=== PATIENT | male | born 1985 | race Caucasian/White ===

== ENCOUNTER 2024-11-11 15:39 | Emergency (ER) | payer MEDICAID, SELFPAY ==
[2024-11-11 15:46] VITALS: BP 122/80; PULSE 79; RESP 18; TEMP 36.8; O2SAT 99; BMI 37.0
--- NOTE | 2024-11-11 17:42 | ED.UPPEXIN ---
HPI - Extremity Injury (Upper) General Date Seen: 11/11/24 Chief Complaint: Extremity Pain/Injury, Upper Stated Complaint: L shoulder pain Time Seen by Provider: 11/11/24 17:10 Source: patient Mode of arrival: ambulatory Limitations: no limitations History of Present Illness HPI narrative: Patient is a 39-year-old male presenting to the emergency department for left shoulder pain. He states this pain is been going on for the past year but he recently moved to the area. He has risen a from [place] and did start seeing primary care there and had an x-ray showing some arthritis but no other abnormalities. Was unable to get further treatment due to moving. He states he will now be living in the area of for the foreseeable future. States the pain is any worse today but it is becoming heart do with and he is hoping to get referral and pain relief for the shoulder. Is taking Tylenol and ibuprofen which helps some. Does not remember any specific injuries to the shoulder. Related Data Previous Rx's ?Medication ?Instructions ?Recorded ketorolac 10 mg tablet 10 mg PO Q6H PRN pain #20 tabs 11/11/24 prednisone 20 mg tablet 40 mg (2 x 20 mg) PO DAILY #10 tabs 11/11/24 Allergies Allergy/AdvReac Type Severity Reaction Status Date / Time No Known Drug Allergies Allergy Verified 11/11/24 15:50 Review of Systems Narrative: Pertinent systems reviewed and were negative unless stated in HPI Exam Narrative: Exam Narrative: Const: Well-nourished, Well-developed, in mild distress Eyes: PERRL, no conjunctival injection, and symmetrical lids HENT: Atraumatic external nose and ears. Moist mucous membranes. MSK:Extremities w/o deformity, Normal Active ROM, positive empty can test to left shoulder. Tenderness over the supraspinatus tendon Skin: Warm, Dry. No rashes or lesions. Neuro: Normal Muscle tone, No focal neurological deficits. Psych: Awake, Alert, & Oriented x3. Appropriate mood and affect. Const: Vital Signs, click to edit/add: Vital Signs - 24 hr 11/11/24 15:46 Temperature 98.3 F Pulse Rate [Right Pulse Oximeter] 79 Respiratory Rate 18 Blood Pressure [Ri ght Upper Arm] 122/80 Pulse Oximetry 99 Oxygen Delivery Me thod Room Air Course Vital Signs Vital signs: Initial Vital Signs Temperature 98.3 F 11/11/24 15:46 Temperature Source Temporal Artery Scan 11/11/24 15:46 Pulse Rate 79 11/11/24 15:46 Pulse Rhythm Regular 11/11/24 15:46 Pulse Strength 3+ Normal 11/11/24 15:46 Respiratory Rate 18 11/11/24 15:46 Blood Pressure 122/80 11/11/24 15:46 Blood Pressure Mean 94 11/11/24 15:46 Pulse Oximetry 99 11/11/24 15:46 Oxygen Delivery Method Room Air 11/11/24 15:46 Vital Signs Temperature 98.3 F 11/11/24 15:46 Pulse Rate 79 11/11/24 15:46 Respiratory Rate 18 11/11/24 15:46 Blood Pressure 122/80 11/11/24 15:46 Pulse Oximetry 99 11/11/24 15:46 Oxygen Delivery Method Room Air 11/11/24 15:46 Temperature 98.3 F 11/11/24 15:46 Pulse Rate 79 11/11/24 15:46 Respiratory Rate 18 11/11/24 15:46 Blood Pressure 122/80 11/11/24 15:46 Pulse Oximetry 99 11/11/24 15:46 Oxygen Delivery Method Room Air 11/11/24 15:46 MDM - Extremity Injury (Upper) MDM Narrative Medical decision making narrative: Patient is a 39-year-old male presenting for what sounds like supraspinatus tendonitis. Further management will need to be outpatient but can prescribe him Toradol and steroids for his likely tendonitis. Do not believe repeat imaging is necessary as he states he had an x-ray done a few months ago and this was nontraumatic injury. Did send him a referral for physical therapy and gave him information to follow up with primary care and Orthopedics. He is agreeable to this plan. Discharge Plan Discharge Clinical Impression: Supraspinatus tendinitis Qualifiers: Laterality: left Qualified Code(s): M75.92 - Shoulder lesion, unspecified, left shoulder Patient Disposition: Home, Self-Care Condition: Stable Additional Instructions: I sent a referral for [facility]. They should contact you to set up the appointments. You will need to follow up with primary care in be given information for primary care. Follow-up with [facility]. Call them at . Was prescribed Toradol and steroids. When using the Toradol do not take other NSAIDs, for example naproxen or ibuprofen. You can use Tylenol though as it is a different class of drugs. Prescriptions: New prednisone 20 mg tablet 40 mg PO DAILY Qty: 10 0RF ketorolac 10 mg tablet 10 mg PO Q6H PRN (Reason: pain) Qty: 20 0RF Rx Instructions: maximum total duration of 5 days from all oral, intranasal, or parenteral formulations Stand Alone Forms: [employer] Info Instructions
--- OUTSIDE RECORDS SUMMARY | 2024-11-11 17:54 | XMS_ITS | Encounter Summary ---
Author Organization [facility] Address [address] [place] [address] Care Team Providers Care Assistant Manager Quality Management Name Role Phone Ga Neely APRN, CNP Primary Care Provi lawrence Encounter Details Date Type Department Care Team (Late st Contact Info) Description 05/05/2015 Correspondence [facility] [address] [place], [place] [address] Ga Neely APRN, RETAIL TEAM LEADER [address] [place] [id number] RESCRICTED RECIPLENT PROGRAM Social History Tobacco Use Types Packs/Day Years Used Date Smoking Tobacco: Every Day Cigarettes Smokeless Tobacco: Never Comments:already started Alcohol Use Standard Drinks/Week Comments Yes 0.8 (1 standard drink = 0.6 oz p ure alcohol) Sex and Gender Information Value Date Recorded Sex Assigned at Not on file Legal Sex Male 6:10 AM CDT Gender Identity Not on file Sexual Orientation Not on file documented as of this encounter Plan of Treatment Not on file documented as of this encounter Visit Diagnoses Not on filedocumented in this encounter Care Teams Assistant Manager Quality Management Relationship Specialty Start Date End Date Ga Neely APRN, COOPER [address] [place], [place] [phone] PCP - General Nurse Practitioner 03/18/13 03/24/19 documented as of this encounter
--- OUTSIDE RECORDS SUMMARY | 2024-11-11 17:54 | XMS_ITS | Encounter Summary ---
[facility] Organization [facility] Address [address] [place] [address] Care Team Providers Care Electrical Assembly Technician Name Role Phone Ga Neely APRN, CNP Primary Care Provi lawrence Encounter Details Date Type Department Care Team (Late st Contact Info) Description 08/11/2015 Correspondence [facility] [address] [facility] [place], [place] [phone] Rajni Palm MD [address] [place] [address] REPORT Social History Tobacco Use Types Packs/Day Years [...] on filedocumented in this encounter Care Teams Electrical Assembly Technician Relationship Specialty Start Date End Date Ga Neely APRN, CNP [address] [place] [address] PCP - General Nurse Practitioner 03/18/13 03/24/19 documented as of this encounter
--- OUTSIDE RECORDS SUMMARY | 2024-11-11 17:54 | XMS_ITS | Encounter Summary ---
Author Organization [facility] Address [address] [place] [address] Care Team Providers Care Postal Clerk Name Role Phone Ga Neely APRN, CNP Primary Care Provi lawrence Encounter Details Date Type Department Care Team (Latest Contact Info) Description 06/02/2015 Correspondence [facility] [address] [place], [place] [phone] Rajni Palm MD [address] [place], [place] [phone] FITNESS FOR DUTY/RETURN TO WORK Social History Tobacco Use Types Packs/Day Years [...] on filedocumented in this encounter Care Teams Postal Clerk Relationship Specialty Start Date End Date Ga Neely APRN, CNP [address] [address] PCP - General Nurse Practitioner 03/18/13 03/24/19 documented as of this encounter
--- OUTSIDE RECORDS SUMMARY | 2024-11-11 17:54 | XMS_ITS | Encounter Summary ---
Author Organization [facility] Address [address] [place] [address] Care Team Providers Care Power Barker Name Role Phone Ga Neely APRN, CNP Primary Care Provi lawrence Encounter Details Date Type Department Care Team (Late st Contact Info) Description 11/04/2013 Correspondence [facility] [address] [facility] [place] [address] Andrea Roach MD PREWORK SCREEN Social History Tobacco Use Types Packs/Day Years Used Date Smoking Tobacco: Every Day Cigarettes Smokeless Tobacco: Never Alcohol Use Standard Drinks/Week Comments Yes 0.8 [...] on filedocumented in this encounter Care Teams Power Barker Relationship Specialty Start Date End Date Ga Neely APRN, COOPER [address] [place], [place] [phone] PCP - General Nurse Practitioner 03/18/13 03/24/19 documented as of this encounter
--- OUTSIDE RECORDS SUMMARY | 2024-11-11 17:54 | XMS_ITS | Encounter Summary ---
Author Organization [facility] Address [address] [place] [address] Care Team Providers Care Operations Administrator Name Role Phone Ga Neely APRN, CNP Primary Care Provi lawrence Encounter Details Date Type Department Care Team (Latest Contact Info) Description 11/04/2013 Consent for Procedure/Treatm ent [facility] [address] [facility] [place], [place] [phone] Andrea Roach MD DRUG SCREEN RELEASE Social History Tobacco Use Types Packs/Day Years [...] on filedocumented in this encounter Care Teams Operations Administrator Relationship Specialty Start Date End Date Ga Neely APRN, CNP [address] [place], [place] [address] PCP - General Nurse Practitioner 03/18/13 03/24/19 documented as of this encounter
--- OUTSIDE RECORDS SUMMARY | 2024-11-11 17:54 | XMS_ITS | Encounter Summary ---
Author Organization [facility] Address [address] [place] [address] Care Team Providers Care Board Certified Arts Therapist Name Role Phone Ga Neely APRN, CNP Primary Care Provi lawrence Encounter Details Date Type Department Care Team (Late st Contact Info) Description 11/04/2013 Correspondence [facility] [address] [place] [address] Andrea Roach MD SYMPTOM HISTORY Social History Tobacco Use Types Packs/Day Years [...] on filedocumented in this encounter Care Teams Board Certified Arts Therapist Relationship Specialty Start Date End Date Ga Neely APRN, WINE AND SPIRITS CLERK [address] [place], [place] [phone] PCP - General Nurse Practitioner 03/18/13 03/24/19 documented as of this encounter
--- OUTSIDE RECORDS SUMMARY | 2024-11-11 17:54 | XMS_ITS | Encounter Summary ---
Author Organization [facility] Address [address], [place] [address] Care Team Providers Care Animal Killer Name Role Phone Ga Neely APRN, CNP Primary Care Provi lawrence Encounter Details Date Type Department Care Team (Late st Contact Info) Description 06/29/2015 Consent for Procedure/Treatment None No Primary/Referring, Phy CONSENT FORM MED EXAM RESPIRATOR CERT Social History Tobacco Use Types Packs/Day Years [...] on filedocumented in this encounter Care Teams Animal Killer Relationship Specialty Start Date End Date Ga Neely APRN, CNP [address] [place] [address] PCP - General Nurse Practitioner 03/18/13 03/24/19 documented as of this encounter
--- OUTSIDE RECORDS SUMMARY | 2024-11-11 17:54 | XMS_ITS | Encounter Summary ---
Author Organization [facility] Address [address], [place] [address] Care Team Providers Care Electrical Inspector Name Role Phone Ga Neely APRN, CNP Primary Care Provi lawrence Encounter Details Date Type Department Care Team (Late st Contact Info) Description 06/28/2015 Correspondence [facility] REPORT OF WORKABILITY Social History Tobacco Use Types Packs/Day Years [...] filedocumented in this encounter Care Teams Electrical Inspector Relationship Specialty Start Date End Date Ga Neely, HANNY, RETAIL MORTGAGE BANKER [address] [address] PCP - General Nurse Practitioner 03/18/13 03/24/19 documented as of this encounter
--- OUTSIDE RECORDS SUMMARY | 2024-11-11 17:54 | XMS_ITS | Encounter Summary ---
Author Organization [facility] Address [address] [place] [address] Care Team Providers Care Prosthetics Technician Name Role Phone Ga Neely APRN, CNP Primary Care Provi lawrence Encounter Details Date Type Department Care Team (Latest Contact Info) Description 06/02/2015 Correspondence [facility] [address] [place], [place] [phone] Rajni Palm MD [address] [place], [place] [phone] NISREEN ALVAREZ PRE-WORK SCREEN Social History Tobacco Use Types Packs/Day [...] on filedocumented in this encounter Care Teams Prosthetics Technician Relationship Specialty Start Date End Date Ga Neely APRN, CNP [address] [place] [address] PCP - General Nurse Practitioner 03/18/13 03/24/19 documented as of this encounter
--- OUTSIDE RECORDS SUMMARY | 2024-11-11 17:54 | XMS_ITS | Encounter Summary ---
Author Organization [facility] Address [address], [place] [address] Care Team Providers Care Seafood Specialist Name Role Phone Ga Neely APRN, CNP Primary Care Provi lawrence Encounter Details Date Type Department Care Team (Latest Contact Info) Description 11/04/2013 Correspondence [facility] [address] [place] [address] Andrea Roach MD INITIAL HEALTH QUESITONNAIRE Social History Tobacco Use Types Packs/Day Years [...] on filedocumented in this encounter Care Teams Seafood Specialist Relationship Specialty Start Date End Date Ga Neely APRN, CNP [address] [place], [place] [address] PCP - General Nurse Practitioner 03/18/13 03/24/19 documented as of this encounter
--- OUTSIDE RECORDS SUMMARY | 2024-11-11 17:54 | XMS_ITS | Clinical Summary ---
Author Organization [facility] Address [address] [place] [address] Care Team Providers Care Inspector Optical Instrument Name Role Phone Pcp, No Primary Care Provider Unavailabl e Allergies Active Allergy Reactions Criticality Noted Date Comments Droperidol Anxiety 06/09/2014 Gabapentin Anxiety,Tachycardia 06/20/2013 Medications FLUTICASONE 50 MCG/ACTUATION NASAL SPRAY, SUSP inhale 1 spray in each nostril by intranasal route once daily 1 0 9 Active albuterol HFA (PRO-AIR,ROSALIO KATHARINE,PROVENTIL) 90 mcg/actuation inhaler Inhale 2 Puffs by mouth 4 times daily if needed for Shortness Of Breath, Wheezing or (cough). 8.5 g 02/23/2012 1:18 AM FIELD RESEARCH ASSOCIATE 2 Active oxyCODONE-acet aminophen, 5-325 mg, (PERCOCET) per tablet Take 1 tablet by mouth every 4 hours if needed for Pain. Max acetaminophen dose: 4000mg in 24 hrs. 15 tablet 0 4 Active oxyCODONE-acet aminophen, 5-325 mg, (PERCOCET) per tablet Take 1 tablet by mouth every 4 hours if needed for Pain. Max acetaminophen dose: 4000mg in 24 hrs. 15 tablet 0 4 Active traMADol (ULTRAM) 50 mg tablet Take 1 tablet by mouth every 6 hours if needed for Pain. 15 tablet 0 4 Active omeprazole (PRILOSEC) 20 mg Delayed-Releas e capsule Take 1 capsule by mouth once daily before a meal. 30 capsule 0 5 Active acetaminophen (TYLENOL) 325 mg tablet Take 2 tablets by mouth every 6 hours if needed. Max acetaminophen dose: 4000mg in 24 hrs. 40 tablet 0 5 Active naproxen (NAPROSYN) 500 mg tabletIndicati ons:Acute back pain Take 1 tablet by mouth 2 times daily with meals. 30 tablet 0 5 Active cyclobenzaprin e (FLEXERIL) 10 mg tabletIndicati ons:Acute back pain Take 1 tablet by mouth 3 times daily. 15 tablet 0 5 Active HYDROcodone-ac etaminophen, 5-325 mg, (NORCO) per tabletIndicati ons:Acute back pain Take 1 tablet by mouth every 4 hours if needed for Pain. Max acetaminophen dose: 4000 mg in 24 hrs. 15 tablet 0 5 Active oxyCODONE-acet aminophen, 5-325 mg, (PERCOCET) 5-325 mg per tabletIndicati ons:Perianal abscess Take 1-2 tablets by mouth every 4 hours if needed for Pain. Max acetaminophen dose: 4000mg in 24 hrs. 20 tablet 6 Active Social History Tobacco Use Types Packs/Day Years Used Date Smoking Tobacco: Every Day Comments:12 cigarettes per d ay Alcohol Use Standard Drinks/Week Comments Not Asked 0 (1 standard drink = 0.6 oz pur e alcohol) Sex and Gender Information Value Date Recorded Sex Assigned at Not on file Legal Sex Male 7:27 AM FIELD RESEARCH ASSOCIATE Gender Identity Not on file Sexual Orientation Not on file Obstetrics History Last Filed Vital Signs Vital Sign Reading Time Taken Comments Blood Pressure 148/90 04/14/2015 2:53 AM FIELD RESEARCH ASSOCIATE Pulse 84 04/14/2015 2:53 AM FIELD RESEARCH ASSOCIATE Temperature 36.3 C (97.3 F) 04/13/2015 11:31 PM FIELD RESEARCH ASSOCIATE Respiratory Rate 18 04/14/2015 2:53 AM FIELD RESEARCH ASSOCIATE Oxygen Saturation 100% 04/14/2015 2:53 AM FIELD RESEARCH ASSOCIATE Inhaled Oxygen Concentration - - Weight 147.9 kg (326 lb) 02/09/2015 9:07 PM FIELD RESEARCH ASSOCIATE Height 198.1 cm (6' 6) 02/09/2015 9:07 PM FIELD RESEARCH ASSOCIATE Body Mass Index 37.67 02/09/2015 9:07 PM FIELD RESEARCH ASSOCIATE Plan of Treatment Health Maintenance Due Date Last Done Comments Tetanus booster 1997 Depression screening for age 12+ 1998 HIV for age 15-65 2001 BMI (ht and wt on same day) for age 18+ 2004 Hepatitis C screening for ag e 18-79 2004 Hepatitis B series for 19+ ( 1 of 3 - 19+ 3-dose series) 2005 Lipids for age 35-44 2021 COVID-19 vaccine series ( - 2023-25 season) 2023 Influenza Vaccine (#1) 2024 Pneumococcal series for age 6-49 Aged Out No longer eligible based on patient's age to complete this topic Insurance [facility] Care Teams Inspector Optical Instrument Relationship Specialty Start Date End Date Pcp, No . PCP - General 08/02/20
--- OUTSIDE RECORDS SUMMARY | 2024-11-11 17:54 | XMS_ITS | Encounter Summary ---
Author Organization [facility] Address [address] [place] [address] Care Team Providers Care Tool Specialist Name Role Phone Ga Neely APRN, CNP Primary Care Provi lawrence Encounter Details Date Type Department Care Team (Latest Contact Info) Description 06/02/2015 Correspondence [place] [facility] [address] [facility] [place] [place], [place] [address] Rajni Palm MD [address] [place], [place] [phone] POST OFFER EMPLOYMENT FORM Social History Tobacco Use Types Packs/Day Years [...] on filedocumented in this encounter Care Teams Tool Specialist Relationship Specialty Start Date End Date Ga Neely APRN, CNP [address] [address] PCP - General Nurse Practitioner 03/18/13 03/24/19 documented as of this encounter
--- OUTSIDE RECORDS SUMMARY | 2024-11-11 17:54 | XMS_ITS | Encounter Summary ---
Author Organization [facility] Address [address] [place] [address] Care Team Providers Care Production Coordinator Name Role Phone Ga Neely APRN, CNP Primary Care Provi lawrence Encounter Details Date Type Department Care Team (Latest Contact Info) Description 06/29/2015 Correspondence [facility] [address] [place] [address] [address] [place], [place] [address] Rajni Palm MD [address] [place], [place] [phone] FITNESS FOR DUTY RETURN TO WORK QUESTIONNAIRE Social History Tobacco Use Types Packs/Day Years [...] on filedocumented in this encounter Care Teams Production Coordinator Relationship Specialty Start Date End Date Ga Neely APRN, CNP [address] [place] [address] PCP - General Nurse Practitioner 03/18/13 03/24/19 documented as of this encounter
--- OUTSIDE RECORDS SUMMARY | 2024-11-11 17:54 | XMS_ITS | Encounter Summary ---
Author Organization [facility] Address [address] [place] [address] Care Team Providers Care Edge Burnisher Uppers Name Role Phone Ga Neely APRN, CNP Primary Care Provi lawrence Encounter Details Date Type Department Care Team (Latest Contact Info) Description 05/29/2015 Correspondence [place] [facility] [address] [place] [address] Rajni Palm MD [address] [place], [place] [phone] REPORT OF WORKABILITY Social History Tobacco Use [...] on filedocumented in this encounter Care Teams Edge Burnisher Uppers Relationship Specialty Start Date End Date Ga Neely APRN, CNP [address] [address] PCP - General Nurse Practitioner 03/18/13 03/24/19 documented as of this encounter
--- OUTSIDE RECORDS SUMMARY | 2024-11-11 17:54 | XMS_ITS | Encounter Summary ---
Author Organization [facility] Address [address] [place] [address] Care Team Providers Care Cremator Name Role Phone Ga Neely APRN, CNP Primary Care Provi lawrence Encounter Details Date Type Department Care Team (Latest Contact Info) Description 11/04/2013 Correspondence [place] [facility] [address] [facility] [place] [address] Andrea Roach MD EPWORTH SLEEPINESS SCALE Social History Tobacco Use Types Packs/Day Years [...] on filedocumented in this encounter Care Teams Cremator Relationship Specialty Start Date End Date Ga Neely APRN, COOPER [address] [place], [place] [address] PCP - General Nurse Practitioner 03/18/13 03/24/19 documented as of this encounter
--- OUTSIDE RECORDS SUMMARY | 2024-11-11 17:54 | XMS_ITS | Encounter Summary ---
Author Organization [facility] Address [address] [place] [address] Care Team Providers Care Equipment Inspector Name Role Phone Ga Neely APRN, CNP Primary Care Provi lawrence Encounter Details Date Type Department Care Team (Latest Contact Info) Description 03/27/2015 Correspondence [place] [facility] [address] [facility] [place] [address] Rajni Palm MD [address] [place], [place] [phone] REPORT OR WORKABILITY Social History Tobacco Use Types Packs/Day [...] on filedocumented in this encounter Care Teams Equipment Inspector Relationship Specialty Start Date End Date Ga Neely APRN, CNP [address] [address] PCP - General Nurse Practitioner 03/18/13 03/24/19 documented as of this encounter
--- OUTSIDE RECORDS SUMMARY | 2024-11-11 17:54 | XMS_ITS | Encounter Summary ---
Author Organization [facility] Address [address] [place] [address] Care Team Providers Care Recreation Therapy Aide Name Role Phone Ga Neely APRN, CNP Primary Care Provi lawrence Encounter Details Date Type Department Care Team (Late st Contact Info) Description 06/02/2015 Correspondence [facility] [address] [place], [place] [address] Rajni Palm MD [address] [place], [place] [phone] PREPLACEMENT EXAM Social History Tobacco Use Types Packs/Day Years [...] on filedocumented in this encounter Care Teams Recreation Therapy Aide Relationship Specialty Start Date End Date Ga Neely APRN, CNP [address] [address] PCP - General Nurse Practitioner 03/18/13 03/24/19 documented as of this encounter
--- OUTSIDE RECORDS SUMMARY | 2024-11-11 17:55 | XMS_ITS | Encounter Summary ---
Author Organization [facility] Address [address] [place] [address] Care Team Providers Care Block Operator Name Role Phone Ga Neely APRN, CNP Primary Care Provi lawrence Encounter Details Date Type Department Care Team (Latest Contact Info) Description 11/04/2013 Correspondence [place] [facility] [address] [facility] [place], [place] [phone] Andrea Roach MD SPEECH AND LANGUAGE ASSISTANT FITNESS DETERMINATION Social History Tobacco Use Types Packs/Day Years [...] on filedocumented in this encounter Care Teams Block Operator Relationship Specialty Start Date End Date Ga Neely APRN, COOPER [address] [place], [place] [address] PCP - General Nurse Practitioner 03/18/13 03/24/19 documented as of this encounter
--- OUTSIDE RECORDS SUMMARY | 2024-11-11 17:55 | XMS_ITS | Clinical Summary ---
[facility] [address] [place] [address] Care Team Providers Care Chief Financial Officer Name Role Phone Unavailable Primary Care Provider Unavailabl e Source Comments You are receiving this document as you are listed as the primary care provider,follow-up provider, or the patient has been referred to you for consultation.This is in compliance with the Medicare and[facility] E[facility] Incentive [facility],which states Providers who transition their patient to another setting of careor provider of care or refers their patient to another provider of care shouldprovide summary care record for each transition of care or referral. Ensenda Allergies Active Allergy Reactions Criticality Noted Date Comments Droperidol Anxiety 11/03/2015 Gabapentin Anxiety,Tachycardia 11/03/2015 Medications naproxen sodium (ALEVE) 220 MG tablet Take 220 mg by mouth two times a day with meals. Active ALBUterol sulfate HFA 108 (90 BASE) MCG/ACT inhaler Inhale 1-2 puffs every 6 hours as needed for Wheezing or Shortness of Breath. 1 Inhaler 0 6 Active ALBUterol 2.5 mg/3 mL, 0.083%, nebulizer solution Inhale 3 mLs by nebulization every 4 hours as needed for Wheezing. (3ml is 1 ampule) 75 mL 0 6 Active Acetaminophen-C odeine (TYLENOL/CODEIN E #3) 300-30 MG Take 1 Tab by mouth three times a day. 15 Tab 0 7 Active Additional Information Patient not taking.Reported on 09/04/2018 penicillin V potassium (PEN VEE K,VEETID) 500 MG tablet Take 1 Tab by mouth 4 times a day. 28 Tab 0 7 Active Additional Information Patient not taking.Reported on 09/04/2018 oxyCODONE-aceta minophen (PERCOCET) 5-325 MG tablet Take 1 Tablet by mouth every 4 hours as needed for Pain. 12 Tablet 9 Active cyclobenzaprine (FLEXERIL) 10 MG tablet Take 1 Tablet by mouth two times daily as needed for Muscle Spasms. 20 Tablet 9 Active ibuprofen (MOTRIN) 800 MG tablet Take 1 Tablet by mouth every 6 hours as needed for Pain. 90 Tablet 9 Active Active Problems Problem Noted Date Diagnosed Date Tobacco abuse 10/30/2015 Asthmatic bronchitis with exacerbation 5 Chronic low back pain 07/28/2013 Foot drop 07/28/2013 Paresthesia and pain of left extremity 4 CAREPLAN: Restriction 05/06/2013 Overview (05/06/2013): Name: CRISTHIAN OVERTON : 87 Restriction Begin Date: 05/06/2013 Restriction End Date: 05/06/2015 Start Date for Designated Providers: 05/06/2013 PCP Name: GA NEELY P[facility] Name: [facility] Phone #: Designated [facility]: [facility] Designated Hospital: [facility] Designated Pharmacy: [facility] Designated Pharmacy Phone #: [facility] Supervisor: Nere[facility] Supervisor's Member may access any contracted chemical/mental health provider w/o a referral from their Primary care physician but may require authorization from the dept - [phone] or fax [phone]. The following services are not restricted: routine screenings (ex. mammogram and annual PAP), dental and eye appointments, manager port visits and DME. Referral is needed from designated PCP in order to access any other providers including acupuncture and chiropractic, regardless of plan type. Morbid obesity 03/18/2013 Tobacco use disorder 03/18/2013 Immunizations Immunization Administration Dates Next Due HepB Ped/Adol (0-18 yrs) 06/17/2003 Tdap 12/12/2008 Social History Tobacco Use Types Packs/Day Years Used Date Smoking Tobacco: Every Day Cigarettes Smokeless Tobacco: Never Tobacco Cessation:Ready to Q uit: Yes Comments:already started Alcohol Use Standard Drinks/Week Comments Yes 0 (1 standard drink = 0.6 oz pur e alcohol) occassionally Sex and Gender Information Value Date Recorded Sex Assigned at Not on file Legal Sex Male 6:10 AM CDT Gender Identity Not on file Sexual Orientation Not on file Last Filed Vital Signs Vital Sign Reading Time Taken Comments Blood Pressure 116/59 09/04/2018 5:18 PM CDT Pulse 83 09/04/2018 5:18 PM CDT Temperature 36.8 C (98.3 F) 09/04/2018 5:18 PM CDT Respiratory Rate 20 09/04/2018 5:18 PM CDT Oxygen Saturation 100% 09/04/2018 5:18 PM CDT Inhaled Oxygen Concentration - - Weight 149.2 kg (329 lb) 03/23/2015 2:03 PM TANNING DRUM OPERATOR Height 193 cm (6' 4) 03/23/2015 2:03 PM TANNING DRUM OPERATOR Body Mass Index 40.05 03/23/2015 2:03 PM TANNING DRUM OPERATOR Plan of Treatment Health Maintenance Due Date Last Done Comments Hep C Screening (Preventive Services) 1986 Asthma ACT (score of 20 or higher) 1990 HIV Screening (Preventive Services) 2002 HepB Vaccine (2) 07/15/2003 06/17/2003 Adult Preventive Visit 2004 HPV Vaccine (1 - 3-dose SCDM series) 2013 DTaP/Tdap/Td Vaccine (2 - Tdap) 12/12/2018 9 Cholesterol 2021 03/21/2013 COVID-19 Vaccine ( - 2023-2 5 season) 2023 Influenza Vaccine (#1) 2024 Zoster/Shingles Vaccine (1 of 2) 2036 HepA Vaccine Aged Out No longer eligi ble based on patient's age to complete this topic Hib Vaccine Aged Out No longer eligi ble based on patient's age to complete this topic IPV (Polio) Vaccine Aged Out No longe r eligible based on patient's age to complete this topic MCV4 Vaccine Aged Out No longer eligi ble based on patient's age to complete this topic Meningococcal B Vaccine Aged Out No l onger eligible based on patient's age to complete this topic Pneumococcal Vaccine Aged Out No long er eligible based on patient's age to complete this topic Procedures Procedure Name Priority Date/Time Associated Diagnosis Comments LIPID PANEL & DIRECT LDL (IF NEEDED) Routine 03/21/2013 3:00 PM TANNING DRUM OPERATOR Morbid obesity from Last 3 Months or Most Recently Relevant to Health Maintenance Results * (ABNORMAL) LIPID PANEL AND DIRECT LDL(IF NEEDED) (03/21/2013 3:00 PM TANNING DRUM OPERATOR) Hours Fasting 12 hours [facility] Cholesterol 228(H) 0 - 199 mg/dl [facility] Triglyceride 72 0 - 149 mg/dl [facility] HDL 46 >40 mg/dl [facility] LDL, Calc. 168(H) 0 - 129 mg/dl [facility] Non HDL Chol, Calc 182 mg/dl [facility] 03/21/2013 3:00 PM TANNING DRUM OPERATOR 03/22/2013 12:51 PM TANNING DRUM OPERATOR Narrative [facility] - 03/22/2013 1:13 PM TANNING DRUM OPERATOR Performed at [facility], [address] [place] [address] Ga Neely APRN, DUPLICATING MACHINE MECHANIC LAB_1 Fin al Result [facility] [phone] from Last 3 Months or Most Recently Relevant to Health Maintenance Insurance [employer] [facility]
--- OUTSIDE RECORDS SUMMARY | 2024-11-11 17:55 | XMS_ITS | Encounter Summary ---
Author Organization [facility] Address [address] [place] [address] Care Team Providers Care Housing Management Officer Name Role Phone Ga Neely APRN, CNP Primary Care Provi lawrence Encounter Details Date Type Department Care Team (Late st Contact Info) Description 01/25/2014 Correspondence [facility] [address] [place], [place] [id number] Monica Hawkins PA-C [address] [address] [facility] MED NOTE Social History Tobacco Use Types Packs/Day Years [...] on filedocumented in this encounter Care Teams Housing Management Officer Relationship Specialty Start Date End Date Ga Neely APRN, CNP [address] [place] [address] PCP - General Nurse Practitioner 03/18/13 03/24/19 documented as of this encounter
--- OUTSIDE RECORDS SUMMARY | 2024-11-11 17:55 | XMS_ITS | Encounter Summary ---
Author Organization [facility] Address [address] [place] [address] Care Team Providers Care Package Sealer Machine Name Role Phone Ga Neely APRN, CNP Primary Care Provi lawrence Encounter Details Date Type Department Care Team (Late st Contact Info) Description 01/25/2014 Consent for Procedure/Treatment [facility] [address] [place] [address] Monica Hawkins PA-C [address] [facility] [address] [place], [place] [id number] CONSENT FORM Social History Tobacco Use Types Packs/Day [...] on filedocumented in this encounter Care Teams Package Sealer Machine Relationship Specialty Start Date End Date Ga Neely APRN, CNP [address] [place] [address] PCP - General Nurse Practitioner 03/18/13 03/24/19 documented as of this encounter
== END 2024-11-11 18:00 | disposition home or self-care (01) ==
LOC: ED 17:52
PROVIDERS: Emergency Provider Student in an Organized Health Care Education/Training Program
DX: M75.92 Shoulder lesion, unspecified, left shoulder (principal)
CPT/HCPCS: 99282; 99283